=== PATIENT | female | born 1975 | race Caucasian/White ===

== ENCOUNTER 2018-09-08 21:34 | Emergency (ER) | payer BC ==
--- OUTSIDE RECORDS SUMMARY | 2018-09-08 21:36 | XMS REPORT ---
:1975 [facility] Address [address] [place] [id number] Care Team Providers Name Role Phone Unavailable Unavailable Unavailable Problems This patient has no known problems. Allergies, Adverse Reactions, Alerts This patient has no known allergies or adverse reactions. Medications This patient has no known medications.
[2018-09-08] MEDS ORDERED: IPRATROPIUM BROM 0.5MG/2.5ML ONE (22:32)
[2018-09-08] MEDS ORDERED: ALBUTEROL 2.5 MG/3 ML NEB SOL ONE (22:32)
[2018-09-08] MEDS ORDERED: predniSONE 20 MG TAB ONE (22:33)
--- NOTE | 2018-09-09 00:11 | ER ---
Nurse's Notes [facility] Name: Amparo Schafer Age: 43 yrs Sex: Female : 1975 Arrival Date: 09/08/2018 Time: 21:35 Bed 8 Private MD: VICENTE BLUM Diagnosis: Chronic obstructive pulmonary disease, unspecified;Anxiety disorder, unspecified Presentation: 09/08 21:42 Presenting complaint: Patient states: I have felt like I am short of breath since la1 yesterday while I was at work. I have a history of COPD but also anxiety and I cant tell what is going on. Transition of care: patient was not received from another setting of care. Onset of symptoms was September 08, 2018. Risk Assessment: Do you want to hurt yourself or someone else? Patient reports no desire to harm self or others. Initial Sepsis Screen: Does the patient meet any 2 criteria? No. Patient's initial sepsis screen is negative. Does the patient have a suspected source of infection? No. Patient's initial sepsis screen is negative. Care prior to arrival: None. 21:42 Method Of Arrival: Ambulatory la1 21:42 Acuity: ALONSO 3 la1 Triage Assessment: 22:29 General: Appears in no apparent distress. comfortable. Respiratory: Onset: The mg2 symptoms/episode began/occurred gradually, the patient has mild shortness of breath. 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 - Social history:: Smoking status: Patient/guardian denies using tobacco. - Ebola Screening: : No symptoms or risks identified at this time. Screenin:29 Abuse screen: Denies threats or abuse. Denies injuries from another. Nutritional mg2 screening: No deficits noted. Tuberculosis screening: No symptoms or risk factors identified. Fall Risk None identified. Assessment: 21:43 Reassessment: pt speaking full sentences in triage in no Respiratory distress. la1 Respiratory: Airway is patent Trachea midline Respiratory effort is even, unlabored, Respiratory pattern is regular, symmetrical, Breath sounds are clear. 22:28 General: Appears in no apparent distress. comfortable, Behavior is calm, cooperative. mg2 Pain: Denies pain. Neuro: Level of Consciousness is awake, alert, obeys commands, Oriented to person, place, time, situation. Cardiovascular: Capillary refill < 3 seconds Patient's skin is warm and dry. Respiratory: Reports shortness of breath. GI: No signs and/or symptoms were reported involving the gastrointestinal system. : No signs and/or symptoms were reported regarding the genitourinary system. EENT: No deficits noted. Derm: Skin is intact, is healthy with good turgor, Skin is pink, warm \T\ dry. normal. Musculoskeletal: Circulation, motion, and sensation intact. Capillary refill < 3 seconds. 23:00 Cardiovascular: Rhythm is sinus rhythm. mg2 23:45 Reassessment: Patient appears in no apparent distress at this time. Patient and/or aa1 family updated on plan of care and expected duration. Pain level reassessed. Patient is alert, oriented x 3, equal unlabored respirations, skin warm/dry/pink. Awaiting x-ray. Vital Signs: 21:42 BP 117 / 76; Pulse 72; Resp 18; Temp 97.8; Pulse Ox 100% on R/A; Weight 50.8 kg; Height la1 5 ft. 5 in. (165.10 cm); 23:45 BP 102 / 68; Pulse 72; Resp 16; Pulse Ox 100% on R/A; Pain 0/10; aa1 21:42 Body Mass Index 18.64 (50.80 kg, 165.10 cm) la1 ED Course: 21:35 Patient arrived in ED. am2 21:37 VICENTE BLUM is Private Physician. am2 21:42 Arm band placed on left wrist. la1 21:43 Triage completed. la1 22:04 Kade Oscar NP is PHCP. pm1 22:04 Harsha Navarro MD is Attending Physician. pm1 22:09 Brown Hauser, HERLINDA is Primary Nurse. mg2 22:29 Patient has correct armband on for positive identification. Placed in gown. Bed in low mg2 position. Call light in reach. Side rails up X 1. Pulse ox on. NIBP on. Door closed. Warm blanket given. 22:29 No provider procedures requiring assistance completed. Patient did not have IV access mg2 during this emergency room visit. 23:58 Patient moved to radiology via wheelchair. kw 23:58 X-ray completed. Patient tolerated procedure well. kw 23:58 Patient moved back from radiology. kw 23:59 Chest Pa And Lat (2 Views) XRAY In Process Unspecified. EDMS Administered Medications: 22:27 Drug: Albuterol - atroVENT (3:1) (2.5 mg - 0.5 mg) 3 ml Route: Nebulizer; mg2 23:25 Follow up: Response: No adverse reaction; Marked relief of symptoms aa1 22:27 Drug: predniSONE 60 mg Route: PO; mg2 23:25 Follow up: Response: No adverse reaction; Marked relief of symptoms aa1 Outcome: 09/09 00:09 Discharge ordered by MD. pm1 00:39 Discharged to home ambulatory. mg2 00:39 Condition: stable 00:39 Discharge instructions given to patient, Instructed on discharge instructions, follow up and referral plans. medication usage, Demonstrated understanding of instructions, follow-up care, medications, Prescriptions given X 3. 00:41 Patient left the ED. mg2 Signatures: Dispatcher [employer] EDMS Lissa Allred RN RN aa1 Sarai Arnold Lee, RN RN la1 Kade Oscar, RIMMA WATERMASTER pm1 Cassandra Montoya am2 Brown Hauser RN RN mg2
--- NOTE | 2018-09-09 00:11 | EDPHYS ---
Physician Documentation [facility] Name: Amparo Schafer Age: 43 yrs Sex: Female : 1975 Arrival Date: 09/08/2018 Time: 21:35 Bed 8 Private MD: VICENTE BLUM ED Physician Harsha Navarro HPI: 09/08 22:30 This 43 yrs old Female presents to ER via Ambulatory with complaints of pm1 Breathing Difficulty. 22:30 The patient has shortness of breath at rest. Onset: The symptoms/episode began/occurred pm1 yesterday. Duration: The symptoms are continuous. The patient's shortness of breath is aggravated by anxiety, is alleviated by nothing. Associated signs and symptoms: Pertinent positives: non-productive cough, Pertinent negatives: chest pain, fever, nausea, vomiting. Severity of symptoms: in the emergency department the symptoms are unchanged. The patient has experienced similar episodes in the past, several times. The patient has not recently seen a physician. Patient isn't certain if it is her COPD or her anxiety. Patient takes anoro and albuterol for her COPD. Patient used to take hydroxyzine for her anxiety but she stopped taking them because they made her too sleepy. 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 - Social history:: Smoking status: Patient/guardian denies using tobacco. - Ebola Screening: : No symptoms or risks identified at this time. ROS: 22:30 Constitutional: Negative for fever, chills, and weight loss, Eyes: Negative for injury, pm1 pain, redness, and discharge, ENT: Negative for injury, pain, and discharge, Neck: Negative for injury, pain, and swelling, Cardiovascular: Negative for chest pain, palpitations, and edema. 22:30 Abdomen/GI: Negative for abdominal pain, nausea, vomiting, diarrhea, and constipation, Back: Negative for injury and pain, : Negative for injury, bleeding, discharge, and swelling, MS/Extremity: Negative for injury and deformity, Skin: Negative for injury, rash, and discoloration, Neuro: Negative for headache, weakness, numbness, tingling, and seizure. 22:30 Respiratory: Positive for cough, with no reported sputum, shortness of breath, Negative for wheezing. 22:30 Psych: Positive for anxiety, Negative for depression. Exam: 22:30 Constitutional: This is a well developed, well nourished patient who is awake, alert, pm1 and in no acute distress. Head/Face: Normocephalic, atraumatic. Eyes: Pupils equal round and reactive to light, extra-ocular motions intact. Lids and lashes normal. Conjunctiva and sclera are non-icteric and not injected. Cornea within normal limits. Periorbital areas with no swelling, redness, or edema. ENT: Nares patent. No nasal discharge, no septal abnormalities noted. Tympanic membranes are normal and external auditory canals are clear. Oropharynx with no redness, swelling, or masses, exudates, or evidence of obstruction, uvula midline. Mucous membranes moist. Neck: Trachea midline, no thyromegaly or masses palpated, and no cervical lymphadenopathy. Supple, full range of motion without nuchal rigidity, or vertebral point tenderness. No Meningismus. Chest/axilla: Normal chest wall appearance and motion. Nontender with no deformity. No lesions are appreciated. Cardiovascular: Regular rate and rhythm with a normal S1 and S2. No gallops, murmurs, or rubs. Normal PMI, no JVD. No pulse deficits. Respiratory: Lungs have equal breath sounds bilaterally, clear to auscultation and percussion. No rales, rhonchi or wheezes noted. No increased work of breathing, no retractions or nasal flaring. Abdomen/GI: Soft, non-tender, with normal bowel sounds. No distension or tympany. No guarding or rebound. No evidence of tenderness throughout. Back: No spinal tenderness. No costovertebral tenderness. Full range of motion. Skin: Warm, dry with normal turgor. Normal color with no rashes, no lesions, and no evidence of cellulitis. MS/ Extremity: Pulses equal, no cyanosis. Neurovascular intact. Full, normal range of motion. 22:30 Neuro: Orientation: is normal, Motor: is normal, moves all fours, Sensation: is normal, no obvious gross deficits. Vital Signs: 21:42 BP 117 / 76; Pulse 72; Resp 18; Temp 97.8; Pulse Ox 100% on R/A; Weight 50.8 kg; Height la1 5 ft. 5 in. (165.10 cm); 23:45 BP 102 / 68; Pulse 72; Resp 16; Pulse Ox 100% on R/A; Pain 0/10; aa1 21:42 Body Mass Index 18.64 (50.80 kg, 165.10 cm) la1 MDM: 22:05 Patient medically screened. pm1 09/09 00:08 Data reviewed: vital signs. Data interpreted: Pulse oximetry: on room air is 100 %. pm1 Interpretation: normal. Counseling: I had a detailed discussion with the patient and/or guardian regarding: the historical points, exam findings, and any diagnostic results supporting the discharge/admit diagnosis, radiology results, the need for outpatient follow up, to return to the emergency department if symptoms worsen or persist or if there are any questions or concerns that arise at home. 09/08 22:14 Order name: Chest Pa And Lat (2 Views) XRAY pm1 Administered Medications: 09/08 22:27 Drug: Albuterol - atroVENT (3:1) (2.5 mg - 0.5 mg) 3 ml Route: Nebulizer; mg2 23:25 Follow up: Response: No adverse reaction; Marked relief of symptoms aa1 22:27 Drug: predniSONE 60 mg Route: PO; mg2 23:25 Follow up: Response: No adverse reaction; Marked relief of symptoms aa1 Disposition: 09/09/18 00:09 Discharged to Home. Impression: Chronic obstructive pulmonary disease, unspecified, Anxiety disorder, unspecified. - Condition is Stable. - Discharge Instructions: Chronic Obstructive Pulmonary Disease, How to Use an Inhaler, Generalized Anxiety Disorder. - Prescriptions for Ativan 0.5 mg Oral Tablet - take 1 tablet by ORAL route every 8 hours As needed; 6 tablet. Albuterol Sulfate 2.5 mg /3 mL (0.083 %) Inhalation Solution for Nebulization - inhale 1 unit by NEBULIZATION route every 8 hours As needed; 1 box. Medrol (Alexander) 4 mg Oral Tablets, Dose Pack - take 1 tablet by ORAL route as directed - follow package instructions; 1 packet. - Medication Reconciliation Form, Thank You Letter, Antibiotic Education, Prescription Opioid Use, Work release form form. - Follow up: Emergency Department; When: As needed; Reason: Worsening of condition. Follow up: Private Physician; When: 2 - 3 days; Reason: Recheck today's complaints, Continuance of care, Re-evaluation by your physician. - Problem is new. - Symptoms have improved. Addendum: 09/10/2018 11:18 Co-signature as Attending Physician, Harsha Navarro MD I agree with the assessment and c collins plan of care. Signatures: Dispatcher [employer] EDHarsha Porter MD MD cha Attema, Lee RN RN la1 Kade Oscar EDI CONSULTANT EDI CONSULTANT pm1 Brown Hauser RN RN mg2 Lissa Allred RN aa1 Corrections: (The following items were deleted from the chart) 09/09 00:41 00:09 09/09/2018 00:09 Discharged to Home. Impression: Chronic obstructive pulmonary mg2 disease, unspecified; Anxiety disorder, unspecified. Condition is Stable. Forms are Medication Reconciliation Form, Thank You Letter, Antibiotic Education, Prescription Opioid Use. Follow up: Emergency Department; When: As needed; Reason: Worsening of condition. Follow up: Private Physician; When: 2 - 3 days; Reason: Recheck today's complaints, Continuance of care, Re-evaluation by your physician. Problem is new. Symptoms have improved. pm1
--- NOTE | 2018-09-09 08:16 | RAD REPORT ---
EXAM DESCRIPTION: RAD - Chest Pa And Lat (2 Views) - 09/09/2018 12:01 am CLINICAL HISTORY: COPD;Cough Chest pain. COMPARISON: No comparisons TECHNIQUE: PA and lateral views of the chest were obtained. FINDINGS: The lungs are hyperexpanded compatible with COPD. The heart is upper limit of normal in si ze. No fracture or aggressive bony process. IMPRESSION: COPD without acute process identified.
== END 2018-09-09 00:41 | disposition home or self-care (01) ==
LOC: ER 21:34
DX: J44.9 Chronic obstructive pulmonary disease, unspecified (principal); F41.9 Anxiety disorder, unspecified
CPT/HCPCS: 71046; J7512

== ENCOUNTER 2018-11-10 18:34 | Emergency (ER) | payer BC ==
--- OUTSIDE RECORDS SUMMARY | 2018-11-10 18:36 | XMS REPORT ---
:1975 [facility] Address [address] [place] [id number] Care Team Providers Name Role Phone Unavailable Unavailable Unavailable Problems This patient has no known problems. Allergies, Adverse Reactions, Alerts This patient has no known allergies or adverse reactions. Medications This patient has no known medications.
[2018-11-10 19:54] LABS: Absolute Lymphocytes (CBC) 1.7 K/uL (0.7-4.9); Basophils % 0.7 % (0-1.3); Eosinophils % 3.3 % (0-4.4); Hematocrit 40.7 % (36.0-45.0); Lymphocytes % 38.5 % (15.3-44.8); Monocytes % 13.6 % (3.3-12.3); RBC Red Blood Cell Count 4.31 M/uL (3.86-4.86)
--- NOTE | 2018-11-10 20:03 | RAD REPORT ---
EXAM DESCRIPTION: CT - Head Brain Wo Cont - 11/10/2018 7:47 pm CLINICAL HISTORY: NUMBNESS Headache, drowsiness COMPARISON: Head Brain Wo Cont dated 11/26/2016 TECHNIQUE: All CT scans are performed using dose optimization technique as appropriate and may inclu de automated exposure control or mA/KV adjustment according to patient size. FINDINGS: No intracranial hemorrhage, hydrocephalus or extra-axial fluid collection.No areas of brai n edema or evidence of midline shift. Mild right mastoid effusion. The paranasal sinuses and mastoids are otherwise clear. The calvarium is intact. IMPRESSION: No acute intracranial abnormality.
[2018-11-10 20:07] LABS: Urine Blood NEGATIVE (NEG); Urine Glucose NEGATIVE (NEG); Urine Protein NEGATIVE (NEG); Urine Specific Gravity 1.015 (1.005-1.030)
[2018-11-10 20:08] LABS: Barbiturates NEGATIVE (NEGATIVE); Benzodiazepines NEGATIVE (NEGATIVE); Cocaine NEGATIVE (NEGATIVE); METHAMPHETAM NEGATIVE (NEGATIVE); Methadone NEGATIVE (NEGATIVE); Opiates NEGATIVE (NEGATIVE); Phencyclidine NEGATIVE (NEGATIVE); THC Cannibis NEGATIVE (NEGATIVE)
[2018-11-10 20:09] LABS: BUN Blood Urea Nitrogen 10 mg/dL (7-18); Bicarbonate 32 mmol/L (21-32); Glucose Level 73 mg/dL (74-106); Potassium 3.4 mmol/L (3.5-5.1); Sodium Level 144 mmol/L (136-145)
--- NOTE | 2018-11-10 20:36 | ER ---
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 Patient ambulated to triage with a steady gait. Transition of care: patient was not received from another setting of care. Onset of symptoms was November 10, 2018 at 03:00. Risk Assessment: Do you want to hurt yourself or someone else? Patient reports no desire to harm self or others. Initial Sepsis Screen: Does the patient meet any 2 criteria? No. Patient's initial sepsis screen is negative. Does the patient have a suspected source of infection? No. Patient's initial sepsis screen is negative. Care prior to arrival: None. 18:39 Method Of Arrival: Ambulatory aj1 18:39 Acuity: ALONSO 3 aj1 Triage Assessment: 18:42 General: Appears in no apparent distress. comfortable, Behavior is calm, cooperative, aj1 appropriate for age. Pain: Denies pain. Neuro: Level of Consciousness is awake, alert, obeys commands, Oriented to person, place, time, situation. Neuro: Color Checker Roving Or Yarn are equal bilaterally Moves all extremities. Full function Gait is steady, Speech is normal, Facial symmetry appears normal, Reports numbness in lower lip and chin. Cardiovascular: Patient's skin is warm and dry. Respiratory: Airway is patent Respiratory effort is even, unlabored, Respiratory pattern is regular, symmetrical. 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 - Social history:: Smoking status: Patient/guardian denies using tobacco. - Ebola Screening: : Patient denies travel to an Ebola-affected area in the 21 days before illness onset. Screenin:24 Abuse screen: Denies threats or abuse. Nutritional screening: No deficits noted. la1 Tuberculosis screening: No symptoms or risk factors identified. Fall Risk None identified. Assessment: 19:24 General: Appears in no apparent distress. Behavior is calm, cooperative. Pain: Denies la1 pain. Neuro: Level of Consciousness is awake, alert, obeys commands, Oriented to person, place, time, situation, Color Checker Roving Or Yarn are equal bilaterally Moves all extremities. Full function Gait is steady, Speech is normal, Facial symmetry appears normal, Pupils are PERRLA, Numbness in lower lip and chin. Cardiovascular: Capillary refill < 3 seconds Patient's skin is warm and dry. Respiratory: Airway is patent Respiratory effort is even, unlabored, Respiratory pattern is regular, symmetrical. GI: No signs and/or symptoms were reported involving the gastrointestinal system. : No signs and/or symptoms were reported regarding the genitourinary system. Vital Signs: 18:42 BP 119 / 71; Pulse 90; Resp 18; Temp 98.6; Pulse Ox 100% on R/A; aj1 18:42 Weight 54.43 kg (R); Height 5 ft. 5 in. (165.10 cm) (R); aj1 18:42 Body Mass Index 19.97 (54.43 kg, 165.10 cm) aj1 NIH Stroke Scale Scores: 20:44 NIHSS Score: 0 ED Course: 18:37 Patient arrived in ED. as 18:41 Triage completed. aj1 19:10 Bi Spence MD is Attending Physician. gs 19:23 Shabbir Gurrola, RN is Primary Nurse. la1 19:24 Arm band placed on right wrist. la1 19:25 Side rails up X 1. la1 19:45 Initial lab(s) drawn, by me, sent to lab. Inserted saline lock: 20 gauge in right lt1 antecubital area, using aseptic technique. 19:46 Basic Metabolic Panel Sent. lt1 19:46 CBC with Diff Sent. lt1 19:48 CT completed. Patient tolerated procedure well. Patient moved to CT. Patient moved back ka from CT. 19:50 CT Head Brain wo Cont In Process Unspecified. EDMS 20:35 Jaquan, Spickard, MD is Referral Physician. 20:53 No provider procedures requiring assistance completed. intact, bleeding controlled, No la1 redness/swelling at site. Pressure dressing applied. Administered Medications: No medications were administered Outcome: 20:36 Discharge ordered by . gs 20:53 Discharged to home ambulatory. la1 20:53 Condition: stable 20:53 Discharge instructions given to patient, Instructed on discharge instructions, follow up and referral plans. medication usage, Demonstrated understanding of instructions, follow-up care. 20:53 Patient left the ED. la1 NIH Stroke Scale - NIH Stroke Score Date: 11/10/2018 Time: 20:44 Total Score = 0 1a. Level of Consciousness (LOC) - 0(Alert) 1b. Level of Consciousness (LOC) (Year \\T\\ Age) - 0(Both) 1c. LOC Commands (Open \\T\\ Closes Eyes/Water Project Engineer) - 0(Both) 2. Best Gaze (Lateral Gaze Paresis) - 0(Normal) 3. Visual Field Loss - 0(No visual loss) 4. Facial Palsy - 0(Normal) 5a. Left Arm: Motor (10-second hold) - 0(No drift) 5b. Right Arm: Motor (10-second hold) - 0(No drift) 6a. Left Leg: Motor (5-second hold - always test supine) - 0(No drift) 6b. Right Leg: Motor (5-second hold - always test supine) - 0(No drift) 7. Limb Ataxia (finger/nose \\T\\ heel/schuster - test with eyes open) - 0(Absent) 8. Sensory Loss (pinprick arms/legs/face) - 0(Normal) 9. Best Language: Aphasia (description/naming/reading) - 0(No aphasia) 10. Dysarthria (speech clarity - read or repeat words) - 0(Normal) 11. Extinction and Inattention (visual/tactile/auditory/spatial/personal) - 0(No abnormality) Initials: Signatures: Dispatcher [employer] EDMS Makeda Carey, RN RN aj1 Vicky Arriola Lee, RN RN la1 Dasia Camacho Gregory, MD MD Matthews, Melissa 1
--- NOTE | 2018-11-10 20:37 | EDPHYS ---
Physician Documentation [facility] Name: Amparo Schafer Age: 43 yrs Sex: Female : 1975 Arrival Date: 11/10/2018 Time: 18:37 Bed 27 Private MD: ED Physician Bi Spence HPI: 11/10 20:29 This 43 yrs old Female presents to ER via Ambulatory with complaints of gs Numbness Of Lips. 20:29 The patient presents to the emergency department with paresthesias of the lower lip. gs Onset: The symptoms/episode began/occurred today, at 03:00. Context: occurred at home, occurred while the patient was receiving bad or unexpected news. Associated signs and symptoms: Pertinent negatives: altered mental status, dizziness, fever, seizure, syncope, loss of vision, weakness. Severity of symptoms: At their worst the symptoms were moderate in the emergency department the symptoms are unchanged. The patient has not experienced similar symptoms in the past. 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 - Social history:: Smoking status: Patient/guardian denies using tobacco. - Ebola Screening: : Patient denies travel to an Ebola-affected area in the 21 days before illness onset. ROS: 20:29 All other systems are negative. gs Exam: 20:29 Head/Face: Normocephalic, atraumatic. Eyes: Pupils equal round and reactive to light, gs extra-ocular motions intact. Lids and lashes normal. Conjunctiva and sclera are non-icteric and not injected. Cornea within normal limits. Periorbital areas with no swelling, redness, or edema. ENT: Nares patent. No nasal discharge, no septal abnormalities noted. Tympanic membranes are normal and external auditory canals are clear. Oropharynx with no redness, swelling, or masses, exudates, or evidence of obstruction, uvula midline. Mucous membranes moist. Neck: Trachea midline, no thyromegaly or masses palpated, and no cervical lymphadenopathy. Supple, full range of motion without nuchal rigidity, or vertebral point tenderness. No Meningismus. Chest/axilla: Normal chest wall appearance and motion. Nontender with no deformity. No lesions are appreciated. Cardiovascular: Regular rate and rhythm with a normal S1 and S2. No gallops, murmurs, or rubs. Normal PMI, no JVD. No pulse deficits. Respiratory: Lungs have equal breath sounds bilaterally, clear to auscultation and percussion. No rales, rhonchi or wheezes noted. No increased work of breathing, no retractions or nasal flaring. Abdomen/GI: Soft, non-tender, with normal bowel sounds. No distension or tympany. No guarding or rebound. No evidence of tenderness throughout. Back: No spinal tenderness. No costovertebral tenderness. Full range of motion. Skin: Warm, dry with normal turgor. Normal color with no rashes, no lesions, and no evidence of cellulitis. MS/ Extremity: Pulses equal, no cyanosis. Neurovascular intact. Full, normal range of motion. 20:29 Constitutional: The patient appears alert, awake. 20:29 Neuro: Orientation: is normal, Mentation: is normal, Cranial nerves: CN II- XII are normal as tested, decreased sensation left side lower lip only. Cerebellar function: Motor: no acute changes, Sensation: pin prick is decreased in the lower lip. Vital Signs: 18:42 BP 119 / 71; Pulse 90; Resp 18; Temp 98.6; Pulse Ox 100% on R/A; aj1 18:42 Weight 54.43 kg (R); Height 5 ft. 5 in. (165.10 cm) (R); aj1 18:42 Body Mass Index 19.97 (54.43 kg, 165.10 cm) aj NIH Stroke Scale Scores: 20:44 NIHSS Score: 0 gs MDM: 19:28 Patient medically screened. 20:29 Data reviewed: vital signs, nurses notes, lab test result(s), radiologic studies. gs Counseling: I had a detailed discussion with the patient and/or guardian regarding: the historical points, exam findings, and any diagnostic results supporting the discharge/admit diagnosis, lab results, radiology results, the need for outpatient follow up, a neurologist. Response to treatment: the patient's symptoms have mildly improved after treatment, and as a result, I will discharge patient. ED course: no stroke, will refer to neurology. 11/10 19:33 Order name: CBC with Diff 11/10 19:33 Order name: Basic Metabolic Panel 11/10 19:33 Order name: Urine Drug Screen; Complete Time: 20:24 gs 11/10 19:34 Order name: CBC with Automated Diff; Complete Time: 20:24 EDMS 11/10 19:34 Order name: Basic Metabolic Panel; Complete Time: 20:24 EDMS 11/10 19:33 Order name: Urine Test (obtain specimen); Complete Time: 19:45 11/10 19:33 Order name: Urine Dipstick-Ancillary (obtain specimen); Complete Time: 19:45 11/10 19:33 Order name: CT Head Brain wo Cont; Complete Time: 20:24 gs 11/10 19:47 Order name: Urine Dipstick--Ancillary (enter results); Complete Time: 20:24 ar5 11/10 19:47 Order name: Urine --Ancillary (enter results); Complete Time: 20:24 ar5 Administered Medications: No medications were administered Disposition: 11/10/18 20:36 Discharged to Home. Impression: Paresthesia of skin. - Condition is Stable. - Discharge Instructions: Paresthesia, [id number]. - Medication Reconciliation Form, Thank You Letter, Antibiotic Education, Prescription Opioid Use form. - Follow up: Alli Partida MD; When: 2 - 3 days; Reason: Re-evaluation by your physician. NIH Stroke Scale - NIH Stroke Score Date: 11/10/2018 Time: 20:44 Total Score = 0 1a. Level of Consciousness (LOC) - 0(Alert) 1b. Level of Consciousness (LOC) (Year \T\ Age) - 0(Both) 1c. LOC Commands (Open \T\ Closes Eyes/Civil Engineering Design Draftsperson) - 0(Both) 2. Best Gaze (Lateral Gaze Paresis) - 0(Normal) 3. Visual Field Loss - 0(No visual loss) 4. Facial Palsy - 0(Normal) 5a. Left Arm: Motor (10-second hold) - 0(No drift) 5b. Right Arm: Motor (10-second hold) - 0(No drift) 6a. Left Leg: Motor (5-second hold - always test supine) - 0(No drift) 6b. Right Leg: Motor (5-second hold - always test supine) - 0(No drift) 7. Limb Ataxia (finger/nose \T\ heel/schuster - test with eyes open) - 0(Absent) 8. Sensory Loss (pinprick arms/legs/face) - 0(Normal) 9. Best Language: Aphasia (description/naming/reading) - 0(No aphasia) 10. Dysarthria (speech clarity - read or repeat words) - 0(Normal) 11. Extinction and Inattention (visual/tactile/auditory/spatial/personal) - 0(No abnormality) Initials: gs Signatures: Dispatcher [employer] EDMS Makeda Carey RN RN aj1 Shabbir Gurrola RN RN la1 Bi Spence MD MD gs Corrections: (The following items were deleted from the chart) 19:50 19:34 UA MICROSCOPIC+U.LAB.BRZ ordered. EDKS EDMS 20:53 20:36 11/10/2018 20:36 Discharged to Home. Impression: Paresthesia of skin. la1 Condition is Stable. Forms are Medication Reconciliation Form, Thank You Letter, Antibiotic Education, Prescription Opioid Use. Follow up: Alli Partida; When: 2 - 3 days; Reason: Re-evaluation by your physician. gs
== END 2018-11-10 20:53 | disposition home or self-care (01) ==
LOC: ER 18:34
DX: R20.2 Paresthesia of skin (principal); F41.9 Anxiety disorder, unspecified
CPT/HCPCS: 36415; 70450; 80048; 80307; 81003; 81025; 85025; 99284